=== PATIENT | male | born 1955 | race Caucasian/White ===

== ENCOUNTER 2016-06-04 06:04 | Inpatient (IN) | payer OTHER ==
[2016-05-22 10:03] LABS: BASOPHILS 0.5 %; BASOPHILS ABSOLUTE 0.04 10/3/uL (0.0-0.16); EOSINOPHILS 2.5 %; HEMATOCRIT 46.8 % (40.0-51.0); HEMOGLOBIN 15.6 g/dL (13.6-17.8); IMMATURE GRANULOCYTES 0.2 %; IMMATURE GRANULOCYTES ABSOLUTE 0.02 10/3/uL (0.0-0.11); LYMPHOCYTES 15.8 %; LYMPHOCYTES ABSOLUTE 1.27 10/3/uL (0.67-4.30); MEAN CORPUS HGB CONC 33.3 g/dL (32.0-36.0); MEAN CORPUSCULAR HEMOGLOB 32.5 pg (26.0-34.0); MEAN CORPUSCULAR VOLUME 97.5 fL (80-100); MEAN PLATELET VOLUME 10.9 fL (9.2-13.0); MONOCYTES 13.4 %; MONOCYTES ABSOLUTE 1.08 10/3/uL (0.21-1.20); NEUTROPHILS 67.6 %; NEUTROPHILS ABSOLUTE 5.45 10/3/uL (2.02-8.40); PLATELET COUNT 269 10/3/uL (150-400); RBC DISTRIBUTION WIDTH 13.9 % (12.0-16.0); WHITE BLOOD CELLS 8.1 10/3/uL (4.5-10.5)
[2016-05-22 10:10] LABS: INTERNATIONAL NORMAL RATI 1.1 UNITS (-); MANUAL DIFF NO %; PARTIAL THROMBO TIME 28.3 SEC (22.5-37.2); PROTIME (NOT ORD) 13.8 SEC (12.0-14.5)
[2016-05-22 10:22] LABS: A/G RATIO 1.1 (0.7-1.9); ALBUMIN 3.7 G/DL (3.5-5.0); ALKALINE PHOSPHATASE 64 U/L (45-117); BUN (BLOOD UREA NITROGEN) 28 MG/DL (6-23); CALCIUM, SERUM 8.9 MG/DL (8.5-10.4); CHLORIDE, SERUM 107 MMOL/L (96-112); CO2 (CARBON DIOXIDE) 26 MMOL/L (24-34); CREATININE 1.06 MG/DL (0.70-1.30); GFR AFRICAN AMERICAN 87 ML/MIN (>=60); GFR NON AFRICAN AMERICAN 75 ML/MIN (>=60); GLOBULIN 3.4 G/DL (2.5-4.1); GLUCOSE, SERUM 105 MG/DL (60-99); POTASSIUM, SERUM 4.5 MMOL/L (3.5-5.3); SGOT(AST) 10 U/L (5-40); SGPT(ALT) 19 U/L (5-65); SODIUM, SERUM 143 MMOL/L (135-148); TOTAL BILIRUBIN 0.8 MG/DL (0-1.2); TOTAL PROTEIN 7.1 G/DL (6.0-8.5)
[2016-05-22 10:28] LABS: ASCORBIC ACID (UR NOT ORDER) NEG (NEG); BILIRUBIN, URINE NEGATIVE (NEG); KETONE, URINE NEGATIVE (NEG); LEUKOCYTE ESTERASE(NOT OR SMALL (NEG); WBC (NOT ORDERED) (RFLEX) 4 (0-5)
--- NOTE | ~2016-06-04 | OP ---
Record Of Operation [facility] [address] [place]. [address] NAME: TERESA SANCHEZ : 53 STATUS : ADM IN PAT#: [id number] AGE: 61 ADM/REG DATE : 06/04/16 MR#: [id number] REPORT SERV DATE: 06/05/16 DICTATED BY: CHIP LEWIS DATE: 06/04/16 REPORT STATUS : Draft TRANSCRIBED BY: MODL DATE: 06/04/16 DATE OF PROCEDURE: 06/04/2016 PREOPERATIVE DIAGNOSIS: Bilateral knee arthritis, left worse than right. POSTOPERATIVE DIAGNOSIS: Bilateral knee arthritis, left worse than right. PROCEDURE: Bilateral total knee arthroplasty, left then right. SURGEON: Chip Lewis M.D. ASSISTANTS: Arianna Ruiz and ( ) ANESTHESIA: General, adductor block, and local infusion. PROCEDURE IN DETAIL: The patient is clearly identified and after obtaining informed consent is brought to the operating room at [facility] where anesthesia is induced uneventfully with excellent anesthetic effect. This concluded, with left knee being more symptomatic, we approached the left knee first. After Esmarch exsanguination was performed, the affected extremity is prepped and draped in the usual manner and after an appropriate time-out procedure is performed, via an anterior approach, the skin is divided, fascial planes are elevated, paramedial approach to the knee is made. The structures themselves are elevated, excised, and debrided where appropriate, whereupon the patella is carefully everted, calipered, and planed and with the size and type being reproduced with the appropriate-size patella, trialing is performed successfully. At this point, the patella is then carefully subluxed laterally, the knee is flexed, osteophytes around the distal femur are removed, followed by the ACL being divided. The femoral canal is entered and vented, at which point with the intramedullary guide being utilized, the distal femoral cut is made. At this point, the tibia is carefully subluxed anteriorly. The surrounding soft tissues to the tibia are protected with Hohmann retractors, at which point the extramedullary guide is utilized to perform the proximal tibial cut and after cleansing these tissues, the spacer block is utilized in extension to confirm excellent extension, stability, and alignment. The guiding pins are then all carefully removed and the knee is then flexed. The femur is sized, whereupon the anterior, posterior, chamfer, and box cuts are made appropriately. The proximal tibia then is assessed. Osteophytes and surrounding soft tissues are removed and debrided where appropriate. Posterior osteophytes are removed as well. The menisci are excised and thus concluding trialing performed successfully. The proximal tibia then is carefully prepared utilizing proper cement technique. The permanent implants have been carefully placed into position uneventfully whereupon copious irrigation is performed, the permanent tibial implants applied and thus concluded. With this concluded, anesthesia cleared for right lower extremity where upon after Esmarch exsanguination is performed, tourniquet is elevated at 350 mmHg. This is successfully tested. The affected extremity is prepped and draped in the usual manner and after an appropriate time-out procedure is performed, via an anterior approach, the skin is divided, fascial planes are elevated, paramedial approach to the knee is made. The structures Record Of Operation [place] [id number] [facility] [place]. [address] NAME: TERESA SANCHEZ ASHLIE : 53 STATUS : ADM IN PAT#: [id number] AGE: 61 ADM/REG DATE : 06/04/16 MR#: [id number] REPORT SERV DATE: 06/05/16 DICTATED BY: CHIP LEWIS DATE: 06/04/16 REPORT STATUS : Draft TRANSCRIBED BY: DAT DATE: 06/04/16 themselves are elevated, excised, and debrided where appropriate, whereupon the patella is carefully everted, calipered, and planed and with the size and type being reproduced with the appropriate-size patella, trialing is performed successfully. At this point, the patella is then carefully subluxed laterally, the knee is flexed, osteophytes around the distal femur are removed, followed by the ACL being divided. The femoral canal is entered and vented, at which point with the intramedullary guide being utilized, the distal femoral cut is made. At this point, the tibia is carefully subluxed anteriorly. The surrounding soft tissues to the tibia are protected with Hohmann retractors, at which point the extramedullary guide is utilized to perform the proximal tibial cut and after cleansing these tissues, the spacer block is utilized in extension to confirm excellent extension, stability, and alignment. The guiding pins are then all carefully removed and the knee is then flexed. The femur is sized, whereupon the anterior, posterior, chamfer, and box cuts are made appropriately. The proximal tibia then is assessed. Osteophytes and surrounding soft tissues are removed and debrided where appropriate. Posterior osteophytes are removed as well. The menisci are excised and thus concluding trialing performed successfully. The proximal tibia then is carefully prepared utilizing proper cement technique. The permanent implants have been carefully placed into position uneventfully whereupon copious irrigation is performed, the permanent tibial implants applied and thus concluded. At this point, both lower extremities are cleansed and dressed and the patient is allowed to awaken and is transferred to the bed and subsequently to the recovery room in stable condition having tolerated the procedure well. ESTIMATED BLOOD LOSS: 150. FLUIDS: 1200. TOURNIQUET TIME: Left 46 minutes, right 57 minutes. PATHOLOGY: Sent specimen. MICROBIOLOGY: None. COMPLICATIONS: None. COUNTS: Sponge and needle count was reportedly correct. Antibiotics were administered appropriately preoperatively and ordered to be discontinued within 23 hours. IMPLANTS: For both knees; femur 8, tibia 8, patella 41, polyethylene 8/6. JOE/LOREL Chip Lewis M.D. / [id number] Record Of Operation [address] [address] NAME: TERESA SANCHEZ ASHLIE : 53 STATUS : ADM IN [facility]#: [id number] AGE: 61 ADM/REG DATE : 06/04/16 MR#: [id number] REPORT SERV DATE: 06/05/16 DICTATED BY: CHIP LEWIS DATE: 06/04/16 REPORT STATUS : Draft TRANSCRIBED BY: MODL DATE: 06/04/16 CC: Chip Lewis M.D.
[~2016-06-04 06:04] MED LIST: ASAB PO; MULTIPLE VIT PO; SINGULAIR1 PO; VITE1000 PO; ZESTRIL10 MG PO; [UNRECOGNIZED DRUG - REMARK]
[2016-06-05 04:08] LABS: HEMOGLOBIN 12.7 g/dL (13.6-17.8)
[2016-06-05 04:13] LABS: INTERNATIONAL NORMAL RATI 1.2 UNITS (-); PROTIME (NOT ORD) 15.3 SEC (12.0-14.5)
[2016-06-05 04:23] LABS: CALCIUM, SERUM 8.1 MG/DL (8.5-10.4); CHLORIDE, SERUM 107 MMOL/L (96-112); CO2 (CARBON DIOXIDE) 28 MMOL/L (24-34); CREATININE 1.05 MG/DL (0.70-1.30); GFR AFRICAN AMERICAN 88 ML/MIN (>=60); GFR NON AFRICAN AMERICAN 76 ML/MIN (>=60); POTASSIUM, SERUM 4.7 MMOL/L (3.5-5.3); SODIUM, SERUM 143 MMOL/L (135-148)
[2016-06-05 04:31] LABS: BUN (BLOOD UREA NITROGEN) 22 MG/DL (6-23); GLUCOSE, SERUM 134 MG/DL (60-99)
[2016-06-06 03:47] LABS: HEMOGLOBIN 11.1 g/dL (13.6-17.8)
[2016-06-06 03:48] LABS: HEMATOCRIT 32.9 % (40.0-51.0)
[2016-06-06 03:53] LABS: INTERNATIONAL NORMAL RATI 1.3 UNITS (-)
[2016-06-06] MEDS ORDERED: C5 PO (11:17)
[2016-06-06] MEDS ORDERED: OXYCOD PO (11:17)
== END 2016-06-06 14:07 | disposition home or self-care (01) | DRG 462 ==
LOC: SDC/OF 06:04 → PACU 12:03 → 3SO 17:21
PROVIDERS: Orthopaedic Surgery
PROC: 0SRC0J9 Replacement of Right Knee Joint with Synthetic Substitute, Cemented, Open Approach (ICD-10-PCS; 2016-06-04)
PROC: 0SRD0J9 Replacement of Left Knee Joint with Synthetic Substitute, Cemented, Open Approach (ICD-10-PCS; principal; 2016-06-04 07:45)
DX: M17.0 Bilateral primary osteoarthritis of knee (principal); Z68.41 Body mass index [BMI] 40.0-44.9, adult; I10 Essential (primary) hypertension; J45.909 Unspecified asthma, uncomplicated; E66.01 Morbid (severe) obesity due to excess calories
CPT/HCPCS: 36415; 71020; 80048; 80053; 81001; 85014; 85018; 85025; 85610; 85730; 86850; 86900; 86901; 87086; 87641; 88305; 88311; 93005; 97110-GP; 97116-GP; 97161-GP; 97165-GO; A9270-GY; C1776; J0690; J1885; J2250; J2270; J2274; J2405; J2710; J2795; J3010